=== PATIENT | female | born 1990 | race Caucasian/White ===

== ENCOUNTER → 2017-06-28 | Outpatient (REF) | payer MEDICAID, OTHER | LOC: M SFHCADAM 12:17 | PROVIDERS: ATTEND Physician Assistant Medical | DX: J02.9 Acute pharyngitis, unspecified (principal) ==

== ENCOUNTER → 2019-06-02 | Outpatient (REF) | payer OTHER | LOC: M SFHCPLAZ 10:22 | PROVIDERS: ATTEND Dermatology | DX: D49.2 Neoplasm of unspecified behavior of bone, soft tissue, and skin (principal) ==

== ENCOUNTER → 2020-08-20 | Outpatient (CLI) | payer OTHER ==
[~2020-08-20] MED LIST: LAMI100T; ZONI100C17
== END ==
LOC: M LABSMTC 10:12
PROVIDERS: ATTEND Anesthesiology
DX: Z01.812 Encounter for preprocedural laboratory examination (principal); Z20.828 Contact with and (suspected) exposure to other viral communicable diseases

== ENCOUNTER 2020-08-25 06:59 | Day surgery (SDC) | payer OTHER ==
[~2020-08-25] VITALS: Ht 175.3 cm; Wt 77.6 kg
[~2020-08-25 06:59] MED LIST changes: +LR 1,000 ML IV ONE; +ceFAZolin SOD 1 GM in D5W MINI-BAG PLUS 50 ML IV ONE
[2020-08-25 07:49] LABS: HEMATOCRIT 43.7 % (36.0-47.0); MEAN CORPUSCULAR HEMOGLOBIN 27.7 pg (27.0-33.0); MEAN CORPUSCULAR VOLUME 86.5 fl (80.0-96.0); PLATELET COUNT, AUTOMATED 226 10^3/uL (150-450); RED BLOOD COUNT 5.05 10^6/uL (4.00-5.40); WHITE BLOOD COUNT 5.8 10^3/uL (4.0-10.0)
[2020-08-25] MEDS ORDERED: ONDANSETRON 4MG/2ML VIAL As Ordered ONE (08:05)
[2020-08-25] MEDS ORDERED: dexameTHASONE 4 MG/ML 1ML VIAL (J1100 PER 1MG) As Ordered ONE ×2 (08:05→08:13)
[2020-08-25] MEDS ORDERED: LIDOCAINE 2% 100MG/5ML SDV (FOR ANES.) As Ordered ONE (08:05)
[2020-08-25] MEDS ORDERED: propofoL 200 MG/20 ML VIAL As Ordered ONE (08:05)
[2020-08-25] MEDS ORDERED: fentaNYL 100 MCG/2 ML INJECTION (J3010) As Ordered ONE (08:05)
[2020-08-25] MEDS ORDERED: MIDAZOLAM INJ 2MG/2ML VIAL (J2250 PER 1MG) As Ordered ONE (08:05)
[2020-08-25] MEDS ORDERED: ROCURONIUM BROMIDE 50 MG/5 ML VIAL As Ordered ONE (08:11)
[2020-08-25] MEDS ORDERED: LIDOCAINE W/EPINEPHRINE 1% 20ML VIAL As Ordered ONE (08:18)
--- NOTE | 2020-08-25 09:17 | POST-OPPD ---
Postoperative Procedure Note Date Of Procedure: Aug 25, 2020 PREOPERATIVE DIAGNOSIS: Right posterior calf mass POSTOPERATIVE DIAGNOSIS: same FINDINGS: Right posterior calf hemangioma PROCEDURE: Excision right posterior calf mass SURGEON: Dr Cerda ANESTHESIA: Local with sedation SPECIMENS: Right posterior calf mass ESTIMATED BLOOD LOSS: 1 cc REPLACED: none DRAINS: none COMPLICATIONS: none POSTOPERATIVE CONDITION: stable Dictation: [id number] KOBI CERDA DO Aug 25, 2020 09:17
[2020-08-25 09:35] VITALS: BP 111/63
--- NOTE | 2020-08-26 09:18 | RO ---
OPERATIVE NOTE DATE OF OPERATION: 08/25/2020 PREOPERATIVE DIAGNOSIS: Right posterior calf mass. POSTOPERATIVE DIAGNOSIS: Right posterior calf mass. FINDINGS: Right posterior calf hemangioma, biopsy proven. PROCEDURE: Excision of right posterior calf mass. SURGEON: Yanna Puentes DO. ANESTHESIA: Local with sedation. SPECIMEN: Right posterior calf mass. ESTIMATED BLOOD LOSS: 1 mL. DRAINS: None. COMPLICATIONS: None. DESCRIPTION OF PROCEDURE: This is a 29-year-old female who has a slow growing right posterior calf mass that she has had for a long period of time. She said it was more than two years ago and it grew gradually, it has a significant amount of bleeding, and it is 2 cm in diameter. The patient had been diagnosed with a hemangioma by dermatology and sent to us for excision. The risks, benefits, and alternatives were discussed with the patient, and she is ready to proceed today. She was brought into the operating room and placed in the prone position. She was awake, slight sedation given to the patient, and then she was prepped and draped in the usual sterile fashion. Preoperative antibiotics were given. Then 1% Lidocaine with epinephrine was infiltrated into the area for 8 mL total. After Lidocaine anesthetic had taken its toll, I made an elliptical incision vertically oriented to encompass the whole lesion with 1 mm borders of health tissue. This was a full-thickness excision to subcutaneous fat. This lesion was excised using 15 and 10-blade. This was marked as 12 o'clock with a suture and sent to pathology. The wound is irrigated. Hemostasis obtained. Undermined the edges [address] and it was closed primarily with 3-0 Monocryl sutures in layers. We used Dermabond and a compression dressing. The patient tolerated the procedure well and transferred to recovery in stable condition.
== END 2020-08-25 09:41 | disposition home or self-care (01) ==
LOC: M SDC 06:59
PROVIDERS: ATTEND Plastic Surgery Surgery of the Hand
DX: D18.01 Hemangioma of skin and subcutaneous tissue (principal); G40.909 Epilepsy, unspecified, not intractable, without status epilepticus; Z79.899 Other long term (current) drug therapy
CPT/HCPCS: 11403; 36415; 81025; 85027; 88305; J0690; J1100; J2250; J2405; J3010